=== PATIENT | female | born 2000 | race Caucasian/White ===

== ENCOUNTER 2021-03-16 16:43 | Emergency (ER) | payer BC ==
[~2021-03-16] VITALS: Ht 167.6 cm; Wt 56.7 kg
[~2021-03-16 16:43] MED LIST: CODACEE120 PO
== END 2021-03-16 17:49 | disposition home or self-care (01) ==
LOC: ER 16:43
DX: R04.0 Epistaxis (principal)
CPT/HCPCS: 99283; A9270

== ENCOUNTER → 2022-01-31 | Outpatient (CLI) | payer BC | END | disposition home or self-care (01) | LOC: LAB 17:12 → LAB SHORT 17:12 | DX: N39.0 Urinary tract infection, site not specified (principal) | CPT/HCPCS: 87077; 87086; 87186 ==

== ENCOUNTER 2022-03-26 08:12 | Emergency (ER) | payer BC ==
[~2022-03-26] VITALS: Ht 162.6 cm; Wt 52.2 kg
[2022-03-26] MEDS ORDERED: TOPI25C PO (08:36)
== END 2022-03-26 08:53 | disposition home or self-care (01) ==
LOC: ER 08:12
DX: R55 Syncope and collapse (principal)
CPT/HCPCS: 99283

== ENCOUNTER 2022-05-17 02:32 | Day surgery (SDC) | payer BC ==
[~2022-05-17 02:32] MED LIST changes: +TOPI25C PO
[2022-05-17] MEDS ORDERED: IRON18 MG PO (08:36)
== END 2022-05-17 09:31 | disposition home or self-care (01) ==
LOC: ATC 02:32
DX: R55 Syncope and collapse (principal)
CPT/HCPCS: 80400; 82533; J0834

== ENCOUNTER → 2023-06-01 | Outpatient (CLI) | payer BC ==
[~2023-06-01] MED LIST changes: +IRON18 MG PO
[2023-06-02 09:40] LABS: Candida species (DNA Probe) Negative (NEGATIVE); G. vaginalis (DNA Probe) Negative (NEGATIVE); T. vaginalis (DNA Probe) Negative (NEGATIVE)
== END ==
LOC: LAB 18:24 → LAB SHORT 18:24
PROVIDERS: Physician Assistant
DX: N89.8 Other specified noninflammatory disorders of vagina (principal)
CPT/HCPCS: 87480; 87510; 87660

== ENCOUNTER → 2024-05-03 | Outpatient (CLI) | payer BC ==
[2024-05-04 07:45] LABS: Candida Group, PCR NOT DETECTED (NOT DETECT); Candida glabrata-krusei, PCR NOT DETECTED (NOT DETECT)
[2024-05-04 08:27] LABS: Bacterial Vaginosis PCR Positive (NEGATIVE)
== END ==
LOC: LAB 17:41 → LAB SHORT 17:41
PROVIDERS: Physician Assistant
DX: N76.0 Acute vaginitis (principal)
CPT/HCPCS: 87481; 87661; 87801